=== PATIENT | female | born 1950 ===

== ENCOUNTER 2021-07-01 09:15 | Inpatient (IN) | payer OTHER ==
[~2021-07-01] VITALS: Ht 154.9 cm; Wt 62.6 kg
[2021-07-01] MEDS ORDERED: ALDACTONE25 MG PO (12:53)
[2021-07-01] MEDS ORDERED: CARDURA1 MG PO (12:54)
[2021-07-01] MEDS ORDERED: SINGULAIR4 M1 PO (12:54)
[2021-07-01] MEDS ORDERED: ARNUITY ELLIP100 MCG IH (12:55)
[2021-07-01] MEDS ORDERED: CRESTOR10 MG PO (12:55)
[2021-07-01] MEDS ORDERED: XYZAL5 MG PO (12:56)
[2021-07-05] MEDS ORDERED: PROAIR HFA8.5 GM (09:17)
[2021-07-05] MEDS ORDERED: FAMOTIDINE40 MG (09:18)
[2021-07-06] MEDS ORDERED: PROAIR HFA8.5 GM PO (18:29)
[2021-07-06] MEDS ORDERED: XYZAL5 MG PO (18:29)
[2021-07-06] MEDS ORDERED: INTEGRA F CAPS1 EACH PO (18:30)
[2021-07-06] MEDS ORDERED: CARDURA1 MG PO (18:30)
[2021-07-06] MEDS ORDERED: SPIRONOLACTONE25 MG PO (18:30)
[2021-07-06] MEDS ORDERED: CRESTOR10 MG PO (18:30)
[2021-07-06] MEDS ORDERED: XARELTO10 MG PO (18:30)
[2021-07-06] MEDS ORDERED: ARNUITY ELLIP100 MCG IH (18:31)
[2021-07-06] MEDS ORDERED: IBUPROFEN400 MG PO (18:31)
[2021-07-06] MEDS ORDERED: DULCOLAX10 MG RECTAL (18:31)
[2021-07-06] MEDS ORDERED: SINGULAIR4 M1 PO (18:31)
[2021-07-06] MEDS ORDERED: FAMOTIDINE40 MG PO (18:32)
[2021-07-06] MEDS ORDERED: CPM (18:36)
== END 2021-07-07 15:48 | disposition short-term general hospital, planned readmission (82) | DRG 494 ==
LOC: SURG 07-04 07:00 → SURH 07-04 12:07 → O/R 07-04 12:07 → SURG 07-04 22:50 → SURH 07-05 03:12
PROVIDERS: ADMIT Orthopaedic Surgery; ATTEND Orthopaedic Surgery
PROC: 0QSH06Z Reposition Left Tibia with Intramedullary Internal Fixation Device, Open Approach (ICD-10-PCS; principal; 2021-07-04 07:00)
DX: S82.122A Displaced fracture of lateral condyle of left tibia, initial encounter for closed fracture (principal); I10 Essential (primary) hypertension; Z20.822 Contact with and (suspected) exposure to COVID-19